=== PATIENT | male | born 1955 | race Caucasian/White ===

== ENCOUNTER 2017-04-04 08:45 | Emergency (ER) | payer BC, OTHER ==
--- NOTE | 2017-04-04 09:15 | ED Physician Documentation ---
PD HPI ABD PAIN - Stated complaint Stated Complaint: R SIDE ABD PX, DIARRHEA - Chief complaint Chief Complaint: Abd Pain - History obtained from History obtained from: Patient - History of Present Illness Timing - onset: How many hours ago (3), Today Timing - duration: Hours (3) Timing - details: Abrupt onset, Still present Quality: Aching, Sharp, Pain Location: RLQ Radiation: Right flank Improved by: No: Eating Worsened by: No: Eating Associated symptoms: Nausea, Vomiting (couple of times.). No: Diarrhea (had a loose BM since onset without change in pain.), Constipation Similar symptoms before: Has not had sx before Recently seen: Not recently seen Review of Systems Constitutional: denies: Fever, Chills Nose: denies: Rhinorrhea / runny nose, Congestion Throat: denies: Sore throat Respiratory: denies: Cough GI: reports: Abdominal Pain, Nausea. denies: Constipation, Diarrhea : denies: Dysuria, Frequency, Hematuria Skin: denies: Rash, Lesions Musculoskeletal: reports: Back pain (right flank) Neurologic: denies: Generalized weakness, Near syncope PD PAST MEDICAL HISTORY - Past Medical History Cardiovascular: None Respiratory: None Neuro: None GI: None : None - Present Medications Home Medications: Ambulatory Orders Medication Instructions Recorded Confirmed Naproxen 375 mg PO BID #15 tablet 04/04/17 Ondansetron Odt [Zofran] 4 mg TL Q6H PRN #15 tablet 04/04/17 Oxycodone HCl/Acetaminophen 1 each PO Q6H PRN #15 tablet 04/04/17 [Percocet 5-325 mg Tablet] Tamsulosin [Flomax] 0.4 mg PO DAILY #5 capsule 04/04/17 - Allergies Allergies/Adverse Reactions: Allergies Allergy/AdvReac Type Severity Reaction Status Date / Time No Known Drug Allergies Allergy Verified 04/04/17 08:51 PD ED PE NORMAL - Vitals Vital signs reviewed: Yes - General General: Alert and oriented X 3, Well developed/nourished, Other (appears very uncomfortable. ) - HEENT HEENT: Moist mucous membranes, Pharynx benign - Neck Neck: Supple, no meningeal sign, No adenopathy - Cardiac Cardiac: RRR, No murmur - Respiratory Respiratory: Clear bilaterally - Abdomen Abdomen: Normal bowel sounds, Soft, Non distended, No organomegaly, Other (some tender RLQ without guarding nor percussion tender. ) - Male Male : Other (no inguinal hernias. ) - Rectal Rectal: Deferred - Back Back: Other (right CVA tenderness to percussion. ) - Derm Derm: Normal color, Warm and dry - Extremities Extremities: No tenderness to palpate, Normal ROM s pain, No edema, No calf tenderness / cord - Neuro Neuro: Alert and oriented X 3, No motor deficit, Normal speech - Psych Psych: Normal mood, Normal affect Results - Vitals Vitals: Vital Signs - 24 hr 04/04/17 04/04/17 10:26 11:23 Heart Rate 66 70 Respiratory 16 16 Rate Blood Pressure 120/72 132/77 H O2 Saturation 98 100 Oxygen O2 Source Room air - Labs Labs: Laboratory Tests 04/04/17 04/04/17 04/04/17 09:00 09:03 09:03 WBC 13.6 H RBC 5.32 Hgb 14.8 Hct 44.5 MCV 83.6 MCH 27.7 MCHC 33.2 RDW 14.4 Plt Count 166 MPV 9.1 Neut # 12.1 H Lymph # 1.0 L [place] # 0.5 Eos # 0.0 Baso # 0.1 Absolute Nucleated RBC 0.00 Nucleated RBCs 0.0 Sodium 141 Potassium 4.3 Chloride 107 Carbon Dioxide 26 Anion Gap 8.0 BUN 23 H Creatinine 1.0 Estimated GFR (MDRD) 76 L Glucose 161 H Calcium 9.0 Total Bilirubin 0.9 AST 18 ALT 18 Alkaline Phosphatase 68 Total Protein 7.3 Albumin 4.5 Globulin 2.8 Albumin/Globulin Ratio 1.6 Lipase 20 L Urine Color YELLOW Urine Clarity CLEAR Urine pH 6.5 Ur Specific [place] 1.020 Urine Protein NEGATIVE Urine Glucose (UA) NEGATIVE Urine Ketones NEGATIVE Urine Occult Blood LARGE H Urine Nitrite NEGATIVE Urine Bilirubin NEGATIVE Urine Urobilinogen 0.2 (NORMAL) Ur Leukocyte Esterase NEGATIVE Urine RBC 6-10 H Urine WBC 0-3 Ur Squamous Epith Cells NONE SEEN Urine Bacteria Rare Ur Microscopic Review INDICATED Urine Culture Comments NOT INDICATED - Rads (name of study) KUB CT Radiology: Prelim report reviewed (right distal ureteral stone 2 mm, without other structural abnormality. ) PD MEDICAL DECISION MAKING - ED course Complexity details: reviewed results, re-evaluated patient (improved with pain meds. Has distal ureteral small stone. Should be passable. ), considered differential, d/w patient Departure - Departure Disposition: 01 Home, Self Care Clinical Impression: Right sided abdominal pain, Ureterolithiasis Condition: Stable Record reviewed to determine appropriate education?: Yes Instructions: ED Stone Renal W Colic Follow-Up: Wil Vargas MD [Primary Care Provider] - Prescriptions: Tamsulosin [Flomax] 0.4 mg PO DAILY #5 capsule Naproxen 375 mg PO BID #15 tablet Oxycodone HCl/Acetaminophen [Percocet 5-325 mg Tablet] 1 each PO Q6H PRN #15 tablet PRN Reason: Pain Ondansetron Odt [Zofran] 4 mg TL Q6H PRN #15 tablet PRN Reason: Nausea / Vomiting Comments: Stay well hydrated. Naproxen twice daily for 5-7 days. Alternatively can use ibuprofen if you have that at home. Tamsulosin daily for the next few days to reduce ureter spasms and promote passage of the stone. Ondansetron if needed for nausea. Add acetaminophen or Percocet if needed for pain. Recheck if not improved over the next couple of days; call your primary care for referral to urology. Return sooner if worsened significantly again. Discharge Date/Time: 04/04/17 11:34
[2017-04-04 09:23] LABS: BASOPHILS # (AUTO) 0.1 10^3/uL (0.0-0.1); BASOPHILS % (AUTO) 0.4 %; EOSINOPHILS % (AUTO) 0.3 %; HCT - HEMATOCRIT 44.5 % (42.0-52.0); HGB - HEMOGLOBIN 14.8 g/dL (14.0-18.0); LYMPHOCYTES % (AUTO) 7.3 %; MEAN CORPUSCULAR HEMOGLOBIN 27.7 pg (27.0-31.0); MEAN CORPUSCULAR HGB CONC 33.2 g/dL (32.0-36.0); MEAN CORPUSCULAR VOLUME 83.6 fL (80.0-94.0); MEAN PLATELET VOLUME 9.1 fL (7.4-11.4); MONOCYTES # (AUTO) 0.5 10^3/uL (0.0-1.0); MONOCYTES % (AUTO) 3.4 %; NEUTROPHILS # (AUTO) 12.1 10^3/uL (1.5-6.6); NEUTROPHILS % (AUTO) 88.6 %; RED BLOOD COUNT 5.32 10^6/uL (4.70-6.10); RED CELL DISTRIBUTION WIDTH 14.4 % (12.0-15.0); UNCORRECTED WHITE BLOOD COUNT 13.6 x10^3/uL; WHITE BLOOD COUNT 13.6 x10^3/uL (4.8-10.8)
[2017-04-04] MEDS ORDERED: KETOROLAC 30 MG/ML VIAL IVP STA (09:23)
[2017-04-04] MEDS ORDERED: SODIUM CHLORIDE 0.9% 1,000 ML IV ONE (09:23)
[2017-04-04] MEDS ORDERED: HYDROmorphone 1 MG/ML SYRINGE IVP STA (09:23)
[2017-04-04] MEDS ORDERED: ONDANSETRON 4 MG/2 ML VIAL IVP STA (09:23)
[2017-04-04 09:32] LABS: BILIRUBIN,URINE NEGATIVE (NEGATIVE); PH,URINE 6.5 PH (5.0-7.5)
[2017-04-04] MEDS ORDERED: HYDROmorphone 1 MG/ML SYRINGE ONE (09:34)
[2017-04-04] MEDS ORDERED: KETOROLAC 30 MG/ML VIAL ONE (09:34)
[2017-04-04] MEDS ORDERED: ONDANSETRON 4 MG/2 ML VIAL ONE (09:34)
[2017-04-04 09:37] LABS: ALBUMIN/GLOBULIN RATIO 1.6 (1.0-2.2); BILIRUBIN,TOTAL 0.9 mg/dL (0.2-1.0); POTASSIUM 4.3 mmol/L (3.5-5.0); TOTAL PROTEIN 7.3 g/dL (6.7-8.2)
[2017-04-04 09:40] LABS: UA w/ MICROSCOPIC CHARGE YES
[2017-04-04 09:59] LABS: WBC,URINE 0-3 /HPF (0-3)
[2017-04-04 10:00] LABS: UR CULTURE IF IND NOT INDICATED
--- NOTE | 2017-04-04 10:24 | CT Preliminary Report ---
Exam: CT Abdomen/Pelvis W/O IMPRESSION: There is mild right hydronephrosis, hydroureter, and perinephric stranding secondary to a 0.2 cm ston e within the lower right ureter. SITE ID: [id number]
--- NOTE | 2017-04-04 10:27 | CT Report ---
EXAM: CT ABDOMEN AND PELVIS EXAM DATE: 04/04/2017 10:16 AM. CLINICAL HISTORY: Right lower abd pain, abruptly this morning. COMPARISONS: None. TECHNIQUE: Routine axial helical CT imaging was performed through the abdomen and pelvis without IV c ontrast. Reconstructions: Coronal and sagittal. In accordance with CT protocol optimization, one or more of the following dose reduction techniques w ere utilized for this exam: automated exposure control, adjustment of mA and/or KV based on patient s ize, or use of iterative reconstructive technique. FINDINGS: Lung Bases: No acute infiltrate. There is a 0.2 cm granuloma within the right lung base. Abdominal Organs: The liver, spleen, pancreas, and adrenal glands demonstrate no acute abnormalities. There is mild right hydronephrosis, hydroureter, perinephric stranding. There is a 0.2 cm stone with in the lower right ureter. The left kidney demonstrates no stones or hydronephrosis. Gallbladder/bile ducts: No significant abnormalities. Peritoneal Cavity: No free fluid, free air or shar adenopathy. Bowel is grossly unremarkable. Pelvic Organs: No bladder stones or wall thickening. Noncontrast images of the visualized pelvic orga ns are unremarkable. Vasculature: Unremarkable. Other: None. IMPRESSION: There is mild right hydronephrosis, hydroureter, and perinephric stranding secondary to a 0.2 cm ston e within the lower right ureter. Referring Provider Line: [phone] SITE ID: [id number]
[2017-04-04] MEDS ORDERED: CEPHALEXIN 250 MG CAPSULE PO ONE (10:56)
[2017-04-04 11:27] VITALS: BP 132/77
== END 2017-04-04 11:34 | disposition home or self-care (01) ==
LOC: ED 08:45
DX: N13.2 Hydronephrosis with renal and ureteral calculous obstruction (principal)
CPT/HCPCS: 36415; 74176; 80053; 81001; 83690; 85025; 96361; 96374; 96375; 99284; A9270; J1170; 81003; 87086

== ENCOUNTER 2020-10-09 08:00 | Outpatient (CLI) | payer BC, MEDICARE ==
--- NOTE | 2020-10-09 08:59 | XRAY Report ---
PROCEDURE: Finger(s) LT INDICATIONS: CRUSHING INJURY OF LEFT INDEX FINGER TECHNIQUE: AP hand, 2 views of the second finger(s) acquired. COMPARISON: None FINDINGS: Bones: Questionable, incomplete lucency transversely through the distal phalanx tuft seen on the sin gle view only. No other evidence of fracture. No dislocation. There is asymmetric second DIP joint sp tk loss with slight spur formation. No suspicious bony lesions. Soft tissues: No suspicious soft tissue calcifications. Soft tissue defect along the lateral aspect of the second distal digit. No radiodense foreign bodies in the tissue. IMPRESSION: Very questionable incomplete transverse fracture through the tuft of the second distal phalanx. This is most likely artifact given the lack of fragmentation expected given the mechanism of injury. No foreign bodies in the soft tissue. Reviewed by: Lori Morgan MD on 10/09/2020 8:58 AM PST Approved by: Lori Morgan MD on 10/09/2020 8:58 AM PST Station ID: [id number]
== END 2020-10-09 23:59 | disposition home or self-care (01) ==
LOC: DI.S 08:00
PROVIDERS: ATTEND Physician Assistant Medical
DX: R93.6 Abnormal findings on diagnostic imaging of limbs (principal)

== ENCOUNTER 2020-12-04 07:48 | Outpatient (CLI) | payer MEDICARE, BC ==
[2020-12-04 15:27] LABS: BASOPHILS % (AUTO) 0.6 %; EOSINOPHILS # (AUTO) 0.1 10^3/uL (0.0-0.7); EOSINOPHILS % (AUTO) 1.7 %; HCT - HEMATOCRIT 46.5 % (42.0-52.0); HGB - HEMOGLOBIN 14.8 g/dL (14.0-18.0); LYMPHOCYTES % (AUTO) 26.9 %; MEAN CORPUSCULAR HEMOGLOBIN 27.9 pg (27.0-31.0); MEAN CORPUSCULAR HGB CONC 31.8 g/dL (32.0-36.0); MEAN CORPUSCULAR VOLUME 87.6 fL (80.0-94.0); MEAN PLATELET VOLUME 11.6 fL (7.4-11.4); MONOCYTES # (AUTO) 0.3 10^3/uL (0.0-1.0); MONOCYTES % (AUTO) 8.3 %; NEUTROPHILS # (AUTO) 2.2 10^3/uL (1.5-6.6); NEUTROPHILS % (AUTO) 62.2 %; PLT - PLATELET COUNT 181 10^3/uL (130-450); RED BLOOD COUNT 5.31 10^6/uL (4.70-6.10); RED CELL DISTRIBUTION WIDTH 14.2 % (12.0-15.0); WHITE BLOOD COUNT 3.6 x10^3/uL (4.8-10.8)
[2020-12-04 16:06] LABS: ALBUMIN 4.4 g/dL (3.2-5.5); ALBUMIN/GLOBULIN RATIO 1.6 (1.0-2.2); ALKALINE PHOSPHATASE 62 IU/L (42-121); ALT ALANINE AMINOTRANSFERASE 20 IU/L (10-60); AST ASPARTATE AMINOTRANSFERASE 20 IU/L (10-42); BILIRUBIN,TOTAL 1.2 mg/dL (0.2-1.0); BUN - BLOOD UREA NITROGEN 19 mg/dL (6-20); CALCIUM 9.1 mg/dL (8.5-10.3); CARBON DIOXIDE - CO2 27 mmol/L (21-32); CHLORIDE 101 mmol/L (101-111); CHOL/HDL RATIO 3.6 (<5.0); CHOLESTEROL 255 mg/dL; GFR - MDRD 75 (>89); GLUCOSE 110 mg/dL (70-100); HDL CHOLESTEROL 70 mg/dL; LDL CHOLESTEROL,CALCULATED 171 mg/dL; LDL/HDL RATIO 2.4 (<3.6); POTASSIUM 4.7 mmol/L (3.5-5.0); SODIUM 137 mmol/L (135-145); TOTAL PROTEIN 7.1 g/dL (6.7-8.2); TRIGLYCERIDES 72 mg/dL; VLDL CHOLESTEROL 14 mg/dL
[2020-12-04 16:23] LABS: THYROID STIMULATING HORMONE 1.88 uIU/mL (0.34-5.60)
== END 2020-12-04 07:49 | disposition home or self-care (01) ==
LOC: LAB.S 07:48
PROVIDERS: ATTEND Physician Assistant
DX: Z00.00 Encounter for general adult medical examination without abnormal findings (principal); Z79.899 Other long term (current) drug therapy; N40.0 Benign prostatic hyperplasia without lower urinary tract symptoms
CPT/HCPCS: 36415; 80053; 80061; 83721; 84153; 84443; 85025